=== PATIENT | female | born 1990 | race Caucasian/White ===

== ENCOUNTER 2019-12-25 17:46 | Emergency (ER) | payer MEDICAID, SELFPAY ==
[~2019-12-25] VITALS: Ht 162.6 cm; Wt 97.1 kg
[2019-12-25 18:15] VITALS: BP_SYST 124
--- NOTE | 2019-12-25 18:19 | NUR ---
Pt triaged in triage room, placed back into waiting room at this time.
--- NOTE | 2019-12-25 19:40 | NUR ---
ER Dr. Reeves at bedside examining patient.
[2019-12-25] MEDS ORDERED: LORazepam 2 MG/ML VIAL IM ONE (19:45)
[2019-12-25] MEDS ORDERED: IPRATROPIUM/ALBUTEROL SULFATE 3 ML AMPUL.NEB (DUONEB) INH ONE (19:45)
[2019-12-25] MEDS ORDERED: methylPREDNISolone SOD SUCC/PF 62.5 MG/ML VIAL IM ONE (19:45)
--- NOTE | 2019-12-25 19:55 | NUR ---
pt a&o x4 c/o of wheezing, SOB, since x1week. pt reports feeling her heart race fast and feeling anxious. pt denies hx asthma. pt tested negative for covid on 11/16/2019. pt has productive cough x1 week.
--- NOTE | 2019-12-25 20:09 | NUR ---
respiratory at bedside for breathing treatment
--- NOTE | 2019-12-25 20:28 | NUR ---
patient ambulates to restroom with steady gait.
--- NOTE | 2019-12-25 21:16 | NUR ---
radiology at bedside for chest xray.
[2019-12-25 22:36] VITALS: BP_SYST 117
--- NOTE | 2019-12-25 22:36 | NUR ---
Patient given written and verbal discharge instructions and verbalizes understanding. ER MD discussed with patient the results and treatment provided. Patient in stable condition. ID arm band removed. Rx of PREDNISONE, INHALER, HYDROXYZINE given. Patient educated on pain management and to follow up with PMD. Pain Scale 0/10. Opportunity for questions provided and answered. Medication side effect fact sheet provided.
== END 2019-12-25 22:36 | disposition home or self-care (01) ==
LOC: SED 17:46
DX: F41.9 Anxiety disorder, unspecified (principal); R06.2 Wheezing; F17.200 Nicotine dependence, unspecified, uncomplicated; F12.90 Cannabis use, unspecified, uncomplicated; Z71.6 Tobacco abuse counseling; Z20.828 Contact with and (suspected) exposure to other viral communicable diseases
CPT/HCPCS: 36415; 71045; 81025; 87426; 94640; 96372; 99284; C9803; J2060; J2930; U0003

== ENCOUNTER 2020-01-18 20:47 | Emergency (ER) | payer MEDICAID, SELFPAY ==
[~2020-01-18] VITALS: Ht 162.6 cm; Wt 97.5 kg
[2020-01-18 20:54] VITALS: BP_SYST 105
--- NOTE | 2020-01-18 21:40 | NUR ---
Dr Whitaker evaluating patient at the tent
--- NOTE | 2020-01-18 21:42 | NUR ---
Pt brought by self , A&Ox4, pt presents to ER with cough congestion x 3 weeks, ambulatory, pt states she was seen in the ER on December and covid test was negative, pt states she is anxious about persistent cough ,speaking in full sentences, VSS, respirations even and unlabored, cap refill <3.
--- NOTE | 2020-01-18 23:31 | NUR ---
Patient given written and verbal discharge instructions and verbalizes understanding. ER MD discussed with patient the results and treatment provided. Patient in stable condition. ID arm band removed. = Rx of augmentin given. Opportunity for questions provided and answered. Medication side effect fact sheet provided.
[2020-01-18 23:32] VITALS: BP_SYST 105
== END 2020-01-18 23:31 | disposition home or self-care (01) ==
LOC: SED 20:47
DX: R05 Cough (principal); R51.9 Headache, unspecified; F12.90 Cannabis use, unspecified, uncomplicated; Z20.828 Contact with and (suspected) exposure to other viral communicable diseases
CPT/HCPCS: 36415; 99283

== ENCOUNTER 2023-04-28 19:03 | Emergency (ER) | payer MEDICAID ==
[~2023-04-28] VITALS: Ht 162.6 cm; Wt 104.3 kg
[2023-04-28 19:14] VITALS: BP_SYST 121; PULSE 82; RESP 18; TEMP 97.7; O2SAT 96
[2023-04-28 19:54] VITALS: O2SAT 96
[2023-04-28] MEDS: LevALBUTEROL HCL 1.25 MG/0.5 ML *CONC.* VIAL.NEB (XOPENEX CONC.) INH ONE (19:54)
[2023-04-28] MEDS: guaiFENesin/DEXTROMETHORPHAN 10 ML UDC PO ONE (20:11)
[2023-04-28 21:22] LABS: INFLUENZA TYPE A Negative (NEGATIVE); INFLUENZA TYPE B NEGATIVE (NEGATIVE)
[2023-04-28] MEDS ORDERED: ALBMDI INH (22:02)
[2023-04-28] MEDS ORDERED: GUAI5SYR PO (22:02)
[2023-04-28] MEDS ORDERED: IBUP-1971 PO (22:02)
[2023-04-28] MEDS ORDERED: AUG875 PO (22:02)
[2023-04-28] MEDS: KETOROLAC TROMETHAMINE 60 MG/2 ML VIAL IM ONE (22:05)
[2023-04-28] MEDS: AMOXICILLIN/POTASSIUM CLAV 875 MG TABLET PO ONE (22:07)
== END 2023-04-28 22:13 | disposition home or self-care (01) ==
LOC: SED 19:03
DX: J32.9 Chronic sinusitis, unspecified (principal); J40 Bronchitis, not specified as acute or chronic; R05.9 Cough, unspecified; R09.89 Other specified symptoms and signs involving the circulatory and respiratory systems; Z79.899 Other long term (current) drug therapy; Z20.822 Contact with and (suspected) exposure to COVID-19
CPT/HCPCS: 36415; 71045; 94640; 99284; 81025; 96372; 87804 ×2; 87426; J7612; J1885